=== PATIENT | male | born 1945 | race Two or more races ===

== ENCOUNTER 2019-01-22 01:35 | Emergency (ER) | payer SELFPAY ==
[~2019-01-22] VITALS: Ht 175.3 cm; Wt 95.0 kg
[2019-01-22] MEDS ORDERED: ONDANSETRON HCL 4MG/2ML INJ IV STA (03:10)
[2019-01-22] MEDS ORDERED: SODIUM CHLORIDE 0.9% 1,000 ML IV ONE (03:10)
[2019-01-22 03:42] LABS: BASOPHILS % 0.4 % (0.0-2.0); EOSINOPHILS % 3.9 % (0.0-5.0); HEMATOCRIT. 37.7 % (42.0-52.0); HEMOGLOBIN. 12.6 g/dL (14.0-18.0); LYMPHOCYTES % 24.2 % (20.0-50.0); MEAN CORPUSCULAR HEMOGLOBIN 28.9 pg (28.0-32.0); MEAN CORPUSCULAR VOLUME 86.2 fL (80.0-94.0); MEAN PLATELET VOLUME 6.9 fl (7.4-10.4); MONOCYTES % 9.3 % (2.0-8.0); NEUTROPHILS % 62.2 % (40.0-76.0); PLATELET 262 x1000/uL (130-400); RED BLOOD CELL COUNT 4.37 mill/uL (4.7-6.1); RED CELL DISTRIBUTION WIDTH 14.5 % (11.6-14.6)
[2019-01-22 03:48] LABS: CHLORIDE 101 mEq/L (98-107)
[2019-01-22 03:53] LABS: ETHANOL BLOOD 289 mg/dL
[2019-01-22] MEDS ORDERED: MIDAZOLAM HCL 2 MG/2 ML VIAL IV ONE (04:15)
[2019-01-22] MEDS ORDERED: PHENYTOIN SODIUM 1,000 MG in SODIUM CHLORIDE 0.9% 100 ML IV ONE (04:15)
[2019-01-22] MEDS ORDERED: DEXAMETHASONE 10 MG/ML VIAL IV ONE (04:15)
[2019-01-22 05:41] VITALS: BP 119/81
[2019-01-22] MEDS ORDERED: IOHEXOL-300 100 ML BOTTLE ONE (06:56)
== END 2019-01-22 06:06 | disposition short-term general hospital (02) ==
LOC: ER 01:35
DX: I60.8 Other nontraumatic subarachnoid hemorrhage (principal); T51.0X1A Toxic effect of ethanol, accidental (unintentional), initial encounter; S00.83XA Contusion of other part of head, initial encounter; G93.49 Other encephalopathy; Y90.8 Blood alcohol level of 240 mg/100 ml or more; X58.XXXA Exposure to other specified factors, initial encounter; Y92.89 Other specified places as the place of occurrence of the external cause
CPT/HCPCS: 36415; 70450; 71045; 72125; 74177; 80053; 80320; 85025; 93005; 96361; 96365; 96375; 99291; J1100; J1165; J2250; J2405; J7030; J7050; Q9967; G0480